=== PATIENT | male | born 1990 | race Caucasian/White ===

== ENCOUNTER 2024-12-13 09:26 | Emergency (ER) | payer OTHER ==
[~2024-12-13] VITALS: Ht 182.8 cm; Wt 85.7 kg
[~2024-12-13 09:26] MED LIST: KEFLEX500 MG PO; MOTRIN800 MG PO
[2024-12-13 09:27] VITALS: BP 153/86
[2024-12-13] MEDS ORDERED: ACETAMINOPHEN 325 MG TAB PO ONE (09:35)
[2024-12-13] MEDS ORDERED: NAPROSYN500 MG PO (09:39)
[2024-12-13 09:53] LABS: URINE AMPHETAMINES Negative (1000ng/ml); URINE BARBITURATES Negative (200ng/ml); URINE BENZODIAZEPINES Negative (200ng/ml); URINE CANNABINOIDS (THC) Negative (50ng/ml); URINE COCAINE Negative (300ng/ml); URINE METHADONE Negative (300ng/ml); URINE OPIATES Negative (300ng/ml); URINE PHENCYCLIDINE Negative (25ng/ml)
== END 2024-12-13 11:15 | disposition home or self-care (01) ==
LOC: ED 09:26
PROVIDERS: Emergency Medicine
DX: S16.1XXA Strain of muscle, fascia and tendon at neck level, initial encounter (principal); R51.9 Headache, unspecified; V49.9XXA Car occupant (driver) (passenger) injured in unspecified traffic accident, initial encounter; Y93.89 Activity, other specified; Y92.410 Unspecified street and highway as the place of occurrence of the external cause; Y99.8 Other external cause status